=== PATIENT | male | born 1985 | race Caucasian/White ===

== ENCOUNTER 2018-06-06 13:03 | Emergency (ER) | payer OTHER ==
--- NOTE | 2018-06-06 13:23 | EDPHY ---
H & P Stated Complaint: L wrist injury Time Seen by Provider: 06/06/18 13:23 HPI/ROS: CHIEF COMPLAINT: Left wrist injury HISTORY OF PRESENT ILLNESS: The patient presents to the ED with complaints of moderate to severe left wrist pain after he fell while playing soccer earlier today. The patient denies any associated numbness or weakness. He denies any pain in his left elbow, shoulder, neck or back. The patient denies additional traumatic complaints. The patient has no significant past medical history. REVIEW OF SYSTEMS: A comprehensive 10 point review of systems is otherwise negative aside from elements mentioned in the history of present illness. Source: Patient Exam Limitations: No limitations - Personal History Current Tetanus/Diphtheria Vaccine: Yes Current Tetanus Diphtheria and Acellular Pertussis (TDAP): Yes - Medical/Surgical History Hx Asthma: No Hx Chronic Respiratory Disease: No Hx Diabetes: No Hx Cardiac Disease: No Hx Renal Disease: No Hx Cirrhosis: No Hx Alcoholism: No Hx HIV/AIDS: No Hx Splenectomy or Spleen Trauma: No Other PMH: esophageal narrowing, appy - Social History Smoking Status: Never smoked - Physical Exam Exam: General Appearance: Alert, no distress Head: Atraumatic Neck: Nontender, trachea midline Respiratory: No chest wall tenderness, lungs clear to auscultation bilaterally Cardiovascular: Regular rate and rhythm Abdomen: Abdomen is soft and nontender, pelvis stable Skin: No lacerations, No abrasion Back: No midline T/L/S pain Extremities: Tenderness to palpation left distal radius. Neurological: GCS 15, 5/5 strength noted throughout the left upper extremity, sensation intact to light touch without evidence of a peripheral nerve paresthesia Constitutional: Initial Vital Signs Temperature (C) 37.5 C 06/06/18 13:19 Heart Rate 100 06/06/18 13:19 Respiratory Rate 16 06/06/18 13:19 Blood Pressure 128/93 H 06/06/18 13:19 O2 Sat (%) 99 06/06/18 13:19 O2 Delivery Mode Room Air Allergies/Adverse Reactions: No Known Allergies Allergy (Unverified 06/06/18 13:18) Home Medications: Medication Instructions Recorded Hydrocodone/APAP 5/325 [[place] 1 - 2 each PO Q6 PRN #20 tab 06/06/18 5/325] Zantac 06/06/18 Medical Decision Making - Diagnostics Imaging Results: Imaging Impressions Wrist X-Ray 06/06/18 13:22 Impression: 1. Complex distal left radial metaphyseal fracture with intra-articular involvement and dorsal angulation. Wrist X-Ray 06/06/18 14:48 Impression: 1. Significant improvement in alignment of complex distal left radial metaphyseal fracture with intra-articular involvement. ED Course/Re-evaluation: The patient presents to the ED with a distal radius fracture which is complex, intra-articular and comminuted. The patient underwent a hematoma block. I did attempt a reduction with limited improvement of his angular dislocation. The patient was placed in a sugar-tong splint. I did review his films with Dr. Joselo Dangelo from Orthopedic surgery. He has requested that the patient follow up with Dr. Zuñiga the upper extremity specialist at the [facility]. The patient will be discharged home with a prescription for pain medications. Differential Diagnosis: Differential diagnosis considered includes fracture, sprain, dislocation Departure - Departure Disposition: Home, Routine, Self-Care Clinical Impression: Wrist fracture, left Condition: Good Instructions: Wrist Fracture in Adults (ED) Additional Instructions: 1. Please contact Dr. Zuñiga at [facility] Orthopedic surgery Department to schedule a follow-up visit. You will likely need surgery for definitive repair of your fracture. 2. Ibuprofen as needed for pain 3. [place] as needed for severe pain 4. Splint and sling until seen by Orthopedic surgery Referrals: Jaki Carreon MD [Primary Care Provider] - As per Instructions Reyes Zuñiga MD [Medical Doctor] - As per Instructions Prescriptions: Hydrocodone/APAP 5/325 [[place] 5/325] 1 - 2 each PO Q6 PRN #20 tab PRN Reason: for pain
[2018-06-06 15:24] VITALS: BP 122/77
== END 2018-06-06 15:23 | disposition home or self-care (01) ==
DX: S59.202A Unspecified physeal fracture of lower end of radius, left arm, initial encounter for closed fracture (principal); W18.39XA Other fall on same level, initial encounter; Y93.66 Activity, soccer

== ENCOUNTER → 2018-06-26 | Outpatient (CLI) | payer OTHER | LOC: BMCIMAGING 15:47 | PROVIDERS: ATTEND Orthopaedic Surgery Hand Surgery | DX: S52.572D Other intraarticular fracture of lower end of left radius, subsequent encounter for closed fracture with routine healing (principal) ==

== ENCOUNTER → 2018-07-11 | Outpatient (CLI) | payer OTHER | LOC: BMCIMAGING 08:38 | PROVIDERS: ATTEND Orthopaedic Surgery Hand Surgery | DX: Z09 Encounter for follow-up examination after completed treatment for conditions other than malignant neoplasm (principal); S52.572D Other intraarticular fracture of lower end of left radius, subsequent encounter for closed fracture with routine healing ==

== ENCOUNTER → 2018-08-29 | Outpatient (CLI) | payer OTHER | LOC: BMCIMAGING 12:18 | PROVIDERS: ATTEND Orthopaedic Surgery Hand Surgery | DX: S52.532D Colles' fracture of left radius, subsequent encounter for closed fracture with routine healing (principal) ==